=== PATIENT | female | born 1950 | race Caucasian/White ===

== ENCOUNTER 2016-07-18 14:34 | Inpatient (IN) | payer MEDICARE ==
[~2016-07-18] VITALS: Ht 152.4 cm; Wt 83.9 kg
[2016-07-19] MEDS ORDERED: PROPOFOL 200 MG/20 ML AMP IV ONE (10:19)
[2016-07-19] MEDS ORDERED: NORMOSOL R INJ 1,000 ML IV ONE (10:19)
[2016-07-19] MEDS ORDERED: ONDANSETRON HCL 4 MG/2 ML VIAL IV PUSH ONE (10:19)
[2016-07-19] MEDS ORDERED: PHENYLEPH/NS 1000 MCG/10 ML SYR IV ONE (10:19)
[2016-07-19 11:52] VITALS: BP 146/78; PULSE 76; RESP 18; TEMP 98.9; O2SAT 96
[2016-07-19] MEDS ORDERED: ONDANSETRON HCL 4 MG/2 ML VIAL ONE (11:56)
[2016-07-19] MEDS ORDERED: metroNIDAZOLE 500 MG INJ 100 ML IV ONE (11:56)
[2016-07-19] MEDS ORDERED: APREPITANT 40 MG CAP ONE (11:56)
[2016-07-19] MEDS ORDERED: ACETAMINOPHEN 1000 MG/100 ML VIAL IV ONE (11:56)
[2016-07-19] MEDS ORDERED: INSULIN HUMAN REGULAR 1,000 UNITS/10 ML VIAL SQ PRN (12:00)
[2016-07-19] MEDS ORDERED: LACTATED RINGER'S 1000 ML IV SCH (12:00)
[2016-07-19] MEDS ORDERED: ceFAZolin 2 GM PREMIX 50 ML IV SCH (12:00)
[2016-07-19] MEDS ORDERED: metroNIDAZOLE 500 MG INJ 100 ML IV SCH (12:00)
[2016-07-19] MEDS ORDERED: ONDANSETRON HCL 4 MG/2 ML VIAL IV PUSH SCH (12:00)
[2016-07-19] MEDS ORDERED: APREPITANT 40 MG CAP PO SCH (12:00)
[2016-07-19] MEDS ORDERED: METOPROLOL TARTRATE 25 MG TAB PO PRN (12:00)
[2016-07-19] MEDS ORDERED: SODIUM CHLORID 0.9% 500 ML IV SCH (12:00)
[2016-07-19] MEDS ORDERED: ACETAMINOPHEN 1000 MG/100 ML VIAL IV SCH (12:00)
[2016-07-19] MEDS ORDERED: CATS500C PO (12:05)
[2016-07-19] MEDS ORDERED: IBUP200T2 PO (12:05)
[2016-07-19] MEDS ORDERED: [UNRECOGNIZED DRUG - CODE] (12:05)
[2016-07-19] MEDS ORDERED: PANT40TA3 PO (12:05)
[2016-07-19] MEDS ORDERED: FAMOTIDINE 20 MG/2 ML VIAL ONE (12:36)
[2016-07-19] MEDS ORDERED: DEXAMETHASONE SOD PHOS 4 MG/ML VIAL ONE (12:37)
[2016-07-19] MEDS ORDERED: MIDAZOLAM HCL 2 MG/2 ML VIAL ONE (12:37)
[2016-07-19] MEDS ORDERED: METOCLOPRAMIDE HCL 10 MG/2 ML VIAL ONE (12:39)
[2016-07-19] MEDS ORDERED: fentaNYL CITRATE 250 MCG/5 ML AMP ONE ×3 (12:40→18:38)
[2016-07-19] MEDS ORDERED: SUGAMMADEX SODIUM 200 MG/2 ML VIAL IV PUSH ONE ×2 (12:41)
[2016-07-19] MEDS ORDERED: BUPIVACAINE/EPINEPHRINE 0.25% PF 30 ML VIAL INFIL ONE (13:26)
[2016-07-19] MEDS ORDERED: HYDROmorphone HCL PF 2 MG/ML VIAL ONE (13:54)
[2016-07-19] MEDS ORDERED: MAGNESIUM SULFATE 2 GM/NS 100 ML IV ONE ×2 (15:30)
[2016-07-19] MEDS ORDERED: MAGNESIUM SULFATE 1 GM PREMIX 100 ML IV SCH (16:00)
[2016-07-19] MEDS ORDERED: MAGNESIUM HYDROXIDE SUSP 30 ML CUP PO PRN (17:15)
[2016-07-19] MEDS ORDERED: Post-op Orders (for Pharmacy) MISC XX ONE (17:15)
[2016-07-19] MEDS ORDERED: ACETAMINOPHEN/HYDROcodone 325 MG/5 MG TAB PO PRN (17:15)
[2016-07-19] MEDS ORDERED: SODIUM CHLORIDE 0.9% FLUSH 5 ML FLUSH IVF PRN (17:15)
[2016-07-19] MEDS ORDERED: HYDROmorphone HCL PF 1 MG/ML VIAL IV PRN (17:15)
[2016-07-19] MEDS: SODIUM CHLOR 0.9% 1000 ML INJ 1,000 ML IV SCH (18:43)
[2016-07-19] MEDS ORDERED: *ONDANSETRON 4 MG VIAL PERIprocedural Use ONLY ONE (18:51)
--- NOTE | 2016-07-19 18:55 | RADRPT ---
EXAM DATE/TIME: 07/19/2016 18:25 [place] COMPARISON: No previous studies available for comparison. INDICATIONS : Post-op laparoscopic hernia repair. MEDICAL HISTORY : None. SURGICAL HISTORY : None. ENCOUNTER: Initial ACUITY: 1 day PAIN SCORE: Non-responsive. LOCATION: Bilateral chest FINDINGS: Infrahilar and basilar consolidation seen on the left. No large effusion demonstrated. No pneumothora x. Heart size upper limits of normal. Thoracic aorta is mildly tortuous. CONCLUSION: Left infrahilar and basilar consolidation, presumably atelectasis. Ponce Lau MD on July 19, 2016 at 18:51 Board Certified Radiologist. This report was verified electronically.
[2016-07-19] MEDS ORDERED: DO NOT ADM ANY ANTICOAGULANT DRUGS XX PRN (19:00)
[2016-07-19] MEDS: KETOROLAC TROMETHAMINE 30 MG/ML (IVP) VIAL IVP PRN (19:50)
[2016-07-19] MEDS: metroNIDAZOLE 500 MG INJ 100 ML IV SCH (19:55)
[2016-07-19 20:00] VITALS: BP 144/78; PULSE 79; RESP 17; TEMP 97.8; O2SAT 98
[2016-07-19] MEDS ORDERED: VANCOMYCIN INJ 1,000 MG in SODIUM CHLOR 0.9% 250 ML INJ 250 ML IV SCH (20:00)
[2016-07-19] MEDS: ONDANSETRON HCL 4 MG/2 ML VIAL IV PRN (20:34)
[2016-07-19] MEDS ORDERED: SODIUM CHLORIDE 0.9% FLUSH 5 ML FLUSH IVF SCH (21:00)
[2016-07-19 21:24] VITALS: O2SAT 98
[2016-07-20] VITALS: BP 182/91; PULSE 84; RESP 19; TEMP 98.7; O2SAT 96
[2016-07-20] MEDS: ONDANSETRON HCL 4 MG/2 ML VIAL IV PRN (00:49)
[2016-07-20] MEDS ORDERED: PROMETHAZINE INJ 25 MG/ML VIAL IM PRN (01:45)
[2016-07-20] MEDS: metroNIDAZOLE 500 MG INJ 100 ML IV SCH ×2 (03:00→13:11)
[2016-07-20] MEDS: SODIUM CHLOR 0.9% 1000 ML INJ 1,000 ML IV SCH ×2 (03:00→16:41)
[2016-07-20 04:00] VITALS: BP 151/82; PULSE 77; RESP 17; TEMP 97.9; O2SAT 98
[2016-07-20 08:00] VITALS: BP 139/78; PULSE 73; RESP 17; TEMP 97.5; O2SAT 96
[2016-07-20] MEDS: KETOROLAC TROMETHAMINE 30 MG/ML (IVP) VIAL IVP PRN (09:10)
[2016-07-20 09:54] VITALS: O2SAT 97
[2016-07-20 12:00] VITALS: BP 138/77; PULSE 85; RESP 16; TEMP 97.1; O2SAT 95
[2016-07-20] MEDS ORDERED: VANCOMYCIN INJ 1,000 MG in SODIUM CHLOR 0.9% 250 ML INJ 250 ML IV SCH (13:00)
[2016-07-20 16:00] VITALS: BP 126/71; PULSE 76; RESP 16; TEMP 98.4; O2SAT 96
[2016-07-20] MEDS: ACETAMINOPHEN/HYDROcodone 325 MG/5 MG TAB PO PRN ×2 (16:40→17:07)
[2016-07-20] MEDS ORDERED: ENOXAPARIN SODIUM 30 MG/0.3 ML SYRINGE SQ SCH (17:30)
--- NOTE | 2016-07-20 18:37 | HHI.PR ---
Subjective Subjective Notes Pt comfortable no co no sob emesis last night better no nausea Objective Vitals/I&O Vital Signs Date Time Temp Pulse Resp B/P Pulse Ox O2 Delivery O2 Flow Rate FiO2 07/20/16 16:00 98.4 76 16 126/71 96 07/19/16 21:24 Nasal Cannula 3.00 Cardiovascular: Regular Lungs: Clear Abdomen: Post-op tenderness Extremities: Perfused Wound Wound : Wound Location: Abdomen Appearance: Clean & Dry A/P Assessment and Plan S/P lap repair recurrent paraesophageal hernia POD #1 doing well suresh liquids d/c home Santo Umaña MD Jul 20, 2016 18:37
--- NOTE | 2016-08-02 10:47 | MP ---
cc: MALVIN APARICIO DATE OF SURGERY 08/02/2016 DATE OF 1950 PREOPERATIVE DIAGNOSIS Paraesophageal hernia, recurrent, ventral hernia POSTOPERATIVE DIAGNOSIS Paraesophageal hernia, recurrent, ventral hernia PROCEDURE 1. Robot assisted laparoscopic repair of paraesophageal hernia with Bio-A mesh. 2. Robot assisted laparoscopic repair of ventral hernia. SURGEON Malvin Aparicio MD [employer] SURGEON Alverto Vegas MD ANESTHESIA General endotracheal anesthesia ESTIMATED BLOOD LOSS [place] FINDINGS A large paraesophageal hernia, adhesions in the upper abdomen, a ventral defect with incarcerated omentum. SPECIMENS None COMPLICATIONS None OPERATION The patient was brought to the operating room and placed on the operating table in the supine position. Bilateral sequential inflation device placed on the lower extremities. General anesthesia instituted. Ballard catheter placed. Antibiotics initiated. The abdomen was prepped and draped sterilely. A point in the infraumbilical region was anesthetized with quarter percent Marcaine with epinephrine. A skin incision was made. A 5-mm port was placed under direct vision and pneumoperitoneum created. Under direct vision, an 8-mm robotic port was placed in the left upper quadrant. A 5-mm port placed in the left upper quadrant, 8-mm robotic port placed in the right upper quadrant and a 5-mm port placed in the right upper quadrant. Prior to placement of all ports, the skin and peritoneum anesthetized with quarter percent Marcaine with epinephrine. The patient was placed in reverse Trendelenburg position. The 5-mm infraumbilical umbilical port was switched out to the 12-mm port. Omentum within the ventral hernia was reduced. The falciform ligament was taken down with cautery. The Hanna-flex retractor was placed. The left lobe of the liver retracted. Attention first focused in the epigastrium. Also, sutures were placed into the abdominal cavity, as well as a Slaughter drain and Ray-Leroy gauze. The laparoscopic tower was then removed from the patient's bedside. The [facility] Ger[facility] Robot was brought to the patient's bedside and docked in place. We then broke scrub and started our dissection in the upper abdomen. The dissection was started in the right along the caudate lobe of the liver. The right nicole was identified. It was dissected inferiorly. Adhesions along the left side on the left crura was dissected. The retrogastric space entered. A Elias drain was placed. The stomach was retracted into the abdominal cavity. Using meticulous blunt and sharp dissection, the hernia sac was dissected and the GE junction was mobilized into the abdominal cavity. There was a good amount of adhesions in this region. The hernia sac was excised. The crura of the diaphragm exposed anteriorly and posteriorly. It was then approximated with 0-silk sutures in a [id number] manner. Three interrupted stitches were placed inferiorly and an additional stitch placed anteriorly. Care was taken not to encroach on the low esophagus on closure of the nicole. The operative field was then inspected and hemostasis assured. Attention then focused on the patient's ventral hernia. The defect was then approximated with a running 0-suture V-lock. The fascial edges came together without tension. At this point, the robot was then undocked. The laparoscopic tower brought back and docked at the patient's bedside. All needles, Ray-Leroy gauze and Slaughter were removed from the abdominal cavity. The fascia at a 12 mm port site approximated with 0-Vicryl. The Hanna-flex retractor removed. The CO2 released. All ports removed. All skin incisions closed with 4-0 Monocryl. The abdominal wall was cleaned and a sterile dressing placed. All instruments and sponge counts were reported as correct at the end of procedure. MD RACHNA Ruiz/JULIET /9:09 AM /10:30 AM [place]
== END 2016-07-20 20:00 | disposition home or self-care (01) | DRG 327 ==
LOC: HSDI 07-19 11:06 → N07A 07-19 20:01
PROVIDERS: ADMIT Surgery; ATTEND Surgery
PROC: 0BUR4JZ (ICD-10-PCS; 2016-07-19)
PROC: 8E0W4CZ Robotic Assisted Procedure of Trunk Region, Percutaneous Endoscopic Approach (ICD-10-PCS; 2016-07-19)
PROC: 0WQF4ZZ Repair Abdominal Wall, Percutaneous Endoscopic Approach (ICD-10-PCS; 2016-07-19)
PROC: 0BUS4JZ (ICD-10-PCS; principal; 2016-07-19 12:42)
DX: K44.9 Diaphragmatic hernia without obstruction or gangrene (principal); K43.6 Other and unspecified ventral hernia with obstruction, without gangrene; R11.10 Vomiting, unspecified
CPT/HCPCS: 71010; 83735; 84132; 94150; C1781; J0131; J1100; J1170; J1650; J1885; J2250; J2370; J2405; J2550; J2765; J3010; J3370; J7030; J7050; J7120; J8501